=== PATIENT | male | born 1990 | race Caucasian/White ===

== ENCOUNTER 2019-08-16 08:10 | Outpatient (CLI) | payer SELFPAY ==
--- NOTE | 2019-08-16 08:20 | XRR_ITS ---
PROCEDURE INFORMATION: Exam: XR Abdomen, 1 View Exam date and time: 08/16/2019 8:42 AM Age: 29 years old Clinical indication: Condition or disease; Kidney or ureter condition; Calculus (stone) in kidney; Patient HX: Had CT renal 08/16/19; Additional info: Calculus of kidney TECHNIQUE: Imaging protocol: XR of the abdomen. Views: Frontal supine view of the abdomen. 1 View. COMPARISON: No relevant prior studies available. FINDINGS: Gastrointestinal tract: Colonic dilatation and prominent stool. Intraperitoneal space: 7 mm nodular calcification overlying the left paraspinous region at the L2-L3 level, suggesting urolithiasis. CT can be performed for improved characterization, if clinically indicated. Asymmetric elevation of the right hemidiaphragm. Bones/joints: Mild scoliosis. XR/XR KUB [id number] IMPRESSION: 7 mm nodular calcification overlying the left paraspinous region at the L2-L3 level, suggesting urolithiasis.
== END 2019-08-16 08:11 | disposition home or self-care (01) ==
LOC: RAD 08:17
PROVIDERS: Family Provider Nurse Practitioner; Visit Provider Urology
DX: N20.0 Calculus of kidney (principal)
CPT/HCPCS: 74018